=== PATIENT | male | born 1950 | race Caucasian/White ===

== ENCOUNTER 2024-04-26 14:04 | Outpatient (CLI) | payer MEDICARE, OTHER, SELFPAY | END 2024-04-26 14:05 | disposition home or self-care (01) | PROVIDERS: PCP Internal Medicine; Visit Provider Internal Medicine | DX: I25.10 Atherosclerotic heart disease of native coronary artery without angina pectoris (principal); Z13.1 Encounter for screening for diabetes mellitus; Z12.5 Encounter for screening for malignant neoplasm of prostate | CPT/HCPCS: 80061; 82947; G0103 ==

== ENCOUNTER 2025-05-12 15:06 | Outpatient (CLI) | payer MEDICARE, OTHER, SELFPAY | END 2025-05-12 15:07 | disposition home or self-care (01) | PROVIDERS: PCP Internal Medicine; Visit Provider Internal Medicine | DX: I25.10 Atherosclerotic heart disease of native coronary artery without angina pectoris (principal) | CPT/HCPCS: 80048; 80061 ==